=== PATIENT | male | born 1975 | race African-American/Black ===

== ENCOUNTER → 2025-04-13 | Outpatient (CLI) | payer MEDICAID, SELFPAY ==
--- NOTE | 2025-04-13 14:00 | XR_ITS ---
Examination: CT abdomen and pelvis without contrast. Coronal 3-D reconstructions. Sagittal 2-D reconstructions. Date and time of exam:April 13, 2025 1430 hours INDICATIONS: Hematochezia 18 months CTDI: vol (mGy): 11.7 DLP: (mGycm): 795 Technique: Axial images of the abdomen have been obtained, 3 mm slice thickness Intravenous contrast material has not been administered. Low dose protocols were performed. One or more of the following dose reduction techniques were used; automated exposure control, adjustment of the mA and/or KV according to patient size, use of iterative reconstruction technique. Findings: No focal liver or splenic lesions No gallstones No pancreatic mass Advanced left hydronephrosis, enlarged left kidney with severe renal cortical thinning No right hydronephrosis Dilated left ureter with 11 mm distal left ureteral calculus Aorta normal size No bowel obstruction Normal appendix No diverticulitis Contracted urinary bladder No prostatomegaly Osseous structures intact IMPRESSION: End stage advanced left hydronephrotic sac with severe renal cortical thinning, 11 mm distal left ureteral calculus
== END | disposition home or self-care (01) ==
PROVIDERS: PCP Physician Assistant; Referring Provider Physician Assistant; Visit Provider Physician Assistant
DX: N13.2 Hydronephrosis with renal and ureteral calculous obstruction (principal)
CPT/HCPCS: 74176